=== PATIENT | female | born 1970 | race Caucasian/White ===

== ENCOUNTER 2016-08-02 18:16 | Emergency (ER) | payer OTHER ==
[~2016-08-02] VITALS: Ht 160 cm; Wt 83.5 kg
[~2016-08-02 18:16] MED LIST: ADVAIR 100/501 DISK IH; ADVAIR HFA120 INHALA IH; ALBUTEROL SULF8.5 GM IH; ASPIRIN81 M2 PO; BENZONATATE100 MG PO; FIORICET WI1 CAPSULE PO; LASIX20 MG PO; LEVOFLOXACIN750 MG PO; MAXAIR AUTOHALE14 GM IH; MONTELUKAST SOD10 MG PO; MOTRIN800 MG PO; MUCINEX600 MG PO; NICOTINE PATCH1 EAC1 TD; POTASSIUM GLUCO2 MEQ PO; PREDNISONE10 MG PO; PREDNISONE20 MG PO; PRILOSEC20 MG PO; PROVENTIL,2.5 MG/0.5 AEROSOL; PROVENTIL,2.5 MG/3 M IH; SPIRIVA RESPIMAT4 GM IH; VENTOLIN HFA18 GM IH; VIBRAMYCIN100 MG PO; ZOCOR20 MG PO
[2016-08-02] MEDS ORDERED: FLOVENT 44120 INHALA IH (21:04)
[2016-08-02] MEDS ORDERED: PREDNISONE20 MG PO (21:04)
[2016-08-02] MEDS ORDERED: ZITHROMAX Z-PA250 MG PO (21:04)
[2016-08-02 21:38] VITALS: BP 144/86
== END 2016-08-02 21:39 | disposition home or self-care (01) ==
LOC: EME 18:16
DX: J44.1 Chronic obstructive pulmonary disease with (acute) exacerbation (principal); J40 Bronchitis, not specified as acute or chronic; F17.200 Nicotine dependence, unspecified, uncomplicated; Z91.14 Patient's other noncompliance with medication regimen
CPT/HCPCS: 71020; 93005; 94640; 99281; 99284; J7512

== ENCOUNTER 2017-05-04 19:43 | Emergency (ER) | payer OTHER ==
[~2017-05-04] VITALS: Ht 162.6 cm; Wt 84.7 kg
[~2017-05-04 19:43] MED LIST changes: +FLOVENT 44120 INHALA IH; +ZITHROMAX Z-PA250 MG PO
[2017-05-04 20:22] LABS: HEMATOCRIT 43.1 % (36.0-46.0); HEMOGLOBIN 14.8 G/DL (11.9-15.5); MCH 30.5 PG (29.0-34.0); MCHC 34.3 G/DL (30.0-36.0); MCV 88.7 FL (83-99); PLATELET COUNT 253 K/uL (156-360); RBC DIS.WIDTH-CV 12.7 % (11.8-14.6); RBC DIS.WIDTH-SD 41.2 % (39-53); RED BLOOD COUNT 4.86 M/uL (3.80-5.20); WHITE BLOOD COUNT 13.6 K/uL (4.1-10.2)
[2017-05-04 20:35] LABS: CHLORIDE 104 mEq/L (99-109); POTASSIUM 3.8 mEq/L (3.7-5.4); SODIUM 137 mEq/L (136-147)
[2017-05-04 20:36] LABS: GLUCOSE 108 mg/dL (70-99)
[2017-05-04 20:40] LABS: CREATININE 0.8 mg/dL (0.6-1.3); GFR ESTIMATE (CALCULATED) > 59 mL/min/
[2017-05-04 20:41] LABS: UREA NITROGEN (BUN) 11 mg/dL (9-23)
[2017-05-04 20:47] LABS: TROP-I INTERPRETATION NEGATIVE; TROPONIN-I < 0.01 ng/mL (0.0-0.30)
[2017-05-04 23:43] LABS: TROP-I INTERPRETATION NEGATIVE; TROPONIN-I < 0.01 ng/mL (0.0-0.30)
[2017-05-05] MEDS ORDERED: MOTRIN600 MG PO (01:23)
[2017-05-05] MEDS ORDERED: NORCO 5/3251 TABLET PO (01:23)
[2017-05-05] MEDS ORDERED: ROBAXIN500 MG PO (01:23)
[2017-05-05 01:44] VITALS: BP 107/69
== END 2017-05-05 01:47 | disposition home or self-care (01) ==
LOC: EME 19:43
PROVIDERS: Emergency Medicine
DX: R07.9 Chest pain, unspecified (principal); M54.12 Radiculopathy, cervical region; I25.2 Old myocardial infarction; F17.200 Nicotine dependence, unspecified, uncomplicated; E11.9 Type 2 diabetes mellitus without complications; I10 Essential (primary) hypertension; E78.5 Hyperlipidemia, unspecified; J44.9 Chronic obstructive pulmonary disease, unspecified; F32.9 Major depressive disorder, single episode, unspecified; R56.9 Unspecified convulsions; F41.9 Anxiety disorder, unspecified; Z88.5 Allergy status to narcotic agent; Z91.040 Latex allergy status; Z88.1 Allergy status to other antibiotic agents
CPT/HCPCS: 71020; 72040; 80048; 84484; 85027; 93005; 99281; 99285

== ENCOUNTER 2017-05-29 15:10 | Emergency (ER) | payer OTHER ==
[~2017-05-29] VITALS: Ht 162.6 cm; Wt 84.4 kg
[~2017-05-29 15:10] MED LIST changes: +MOTRIN600 MG PO; +NORCO 5/3251 TABLET PO; +ROBAXIN500 MG PO
[2017-05-29 16:05] LABS: HEMATOCRIT 44.7 % (36.0-46.0); MCH 30.5 PG (29.0-34.0); MCHC 34.7 G/DL (30.0-36.0); MEAN PLAT.VOLUME 10.9 uM^3 (9.5-12.4); PLATELET COUNT 205 K/uL (156-360); RBC DIS.WIDTH-CV 12.7 % (11.8-14.6); RBC DIS.WIDTH-SD 41.4 % (39-53); RED BLOOD COUNT 5.08 M/uL (3.80-5.20); WHITE BLOOD COUNT 6.8 K/uL (4.1-10.2)
[2017-05-29] MEDS ORDERED: MUCINEX1200 MG PO (16:19)
[2017-05-29] MEDS ORDERED: OMEPRAZOLE40 M1 PO (16:19)
[2017-05-29 16:22] LABS: CHLORIDE 103 mEq/L (99-109); POTASSIUM 3.8 mEq/L (3.7-5.4); SODIUM 138 mEq/L (136-147)
[2017-05-29 16:24] LABS: GLUCOSE 152 mg/dL (70-99)
[2017-05-29 16:25] LABS: ANION GAP 11 MEQ/L (2-14)
[2017-05-29 16:26] LABS: TOTAL BILIRUBIN 0.6 mg/dL (0.0-1.0)
[2017-05-29 16:27] LABS: ALKALINE PHOSPHATASE 99 IU/L (3-129)
[2017-05-29 16:28] LABS: GFR ESTIMATE (CALCULATED) > 59 mL/min/
[2017-05-29 16:29] LABS: UREA NITROGEN (BUN) 10 mg/dL (9-23)
[2017-05-29] MEDS ORDERED: VENTOLIN HFA18 GM IH (17:09)
[2017-05-29 17:25] VITALS: BP 128/79
== END 2017-05-29 17:26 | disposition home or self-care (01) ==
LOC: EME 15:10
PROVIDERS: Nurse Practitioner Family
DX: J06.9 Acute upper respiratory infection, unspecified (principal); F17.200 Nicotine dependence, unspecified, uncomplicated
CPT/HCPCS: 71020; 80053; 85027; 87502; 87651 90; 94640; 99281; 99284